=== PATIENT | female | born 1990 | race Two or more races ===

== ENCOUNTER 2022-11-12 23:47 | Emergency (ER) | payer MEDICAID ==
[~2022-11-12] VITALS: Ht 160 cm; Wt 77.8 kg
[2022-11-13 01:53] VITALS: BP 114/60
[2022-11-13] MEDS ORDERED: CEPH-510 PO (04:28)
== END 2022-11-13 04:32 | disposition home or self-care (01) ==
LOC: ER 23:47
DX: N61.0 Mastitis without abscess (principal)
CPT/HCPCS: 76642